=== PATIENT | male | born 1995 | race African-American/Black ===

== ENCOUNTER → 2018-01-17 09:48 | Emergency (ER) | payer OTHER ==
--- NOTE | 2018-01-17 10:15 | ED ---
GI/ HPI - HPI Summary HPI Summary: Patient is a 22 y/o M w/ c/o hematuria. Sx onset this morning. He denies pain, burning, and pruritus at the time. However, he notes he experienced dysuria when providing a urine sample in ED. Back pain, penile discharge, nausea, vomiting, light-headedness/dizziness are denied. Patient notes that he is sexually active with women. On triage, nothing is noted to aggravate/alleviate Sx. Home medications and allergies are reviewed. - History of Current Complaint Chief Complaint: EDUrogenitalProblems Time Seen by Provider: 01/17/18 10:12 Stated Complaint: BLOOD IN URINE Hx Obtained From: Patient Onset/Duration: Started Minutes Ago - dysuria onset while providing urine sample , Started Hours Ago - hematuria onset this morning Current Severity: None - pain is denied Pain Intensity: 0 Additional Locations for Males: Penis - hematuria Associated Signs and Symptoms: Positive: Hematuria, Dysuria, Other: - NEGATIVE: pain, pruritus, and burning. Negative: Back Pain, Dizziness, Nausea, Vomiting, Lightheadedness Additional Signs & Symptoms: Negative: Penile Discharge Aggravating Factor(s): Nothing Alleviating Factor(s): Nothing - Allergy/Home Medications Allergies/Adverse Reactions: Allergies Allergy/AdvReac Type Severity Reaction Status Date / Time No Known Allergies Allergy Verified 01/17/18 10:04 Home Medications: Home Medications NK [No Home Medications Reported] 01/17/18 [History Confirmed 01/17/18] PMH/Surg Hx/FS Hx/Imm Hx Sensory History: Denies: Hx Legally Blind, Hx Deafness Opthamlomology History: Denies: Hx Legally Blind EENT History: Denies: Hx Deafness Infectious Disease History: No Infectious Disease History: Denies: Traveled Outside the [place] in Last 30 Days - Family History Known Family History: Positive: Diabetes - uncle - Social History Alcohol Use: None Substance Use Type: Reports: None Review of Systems Negative: Vomiting, Nausea Positive: dysuria, hematuria, other - NEGATIVE: pruritus . Negative: discharge , pain Positive: Other - NEGATIVE: back pain Neurological: Other - NEGATIVE: light-headedness/dizziness All Other Systems Reviewed And Are Negative: Yes Physical Exam - Summary Physical Exam Summary: Appearance: The patient is well-nourished in no acute distress and in no acute pain. Skin: The skin is warm and dry and skin color reflects adequate perfusion. HEENT: The head is normocephalic and atraumatic. The pupils are equal and reactive. The conjunctivae are clear and without drainage. Nares are patent and without drainage. Mouth reveals moist mucous membranes and the throat is without erythema and exudate. The external ears are intact. The ear canals are patent and without drainage. The tympanic membranes are intact. Neck: The neck is supple with full range of motion and non-tender. There are no carotid bruits. There is no neck vein distension. Respiratory: Chest is non-tender. Lungs are clear to auscultation and breath sounds are symmetrical and equal. Cardiovascular: Heart is regular rate and rhythm. There is no murmur or rub auscultated. There is no peripheral edema and pulses are symmetrical and equal. Abdomen: The abdomen is soft and non-tender. There are normal bowel sounds heard in all four quadrants and there is no organomegaly palpated. Musculoskeletal: There is no back tenderness noted. Extremities are non-tender with full range of motion. There is good capillary refill. There is no peripheral edema or calf tenderness elicited. Neurological: Patient is alert and oriented to person, place and time. The patient has symmetrical motor strength in all four extremities. Cranial nerves are grossly intact. Deep tendon reflexes are symmetrical and equal in all four extremities. Psychiatric: The patient has an appropriate affect and does not exhibit any anxiety or depression. Triage Information Reviewed: Yes Vital Signs On Initial Exam: Initial Vitals Temp Pulse Resp BP Pulse Ox 98.4 F 79 15 142/75 100 01/17/18 10:01 01/17/18 10:01/17/18 10:01 01/17/18 10:01 01/17/18 10:01 Vital Signs Reviewed: Yes Diagnostics - Vital Signs Vital Signs Temp Pulse Resp BP Pulse Ox 01/17/18 10:01 98.4 F 79 15 142/75 100 - Laboratory Lab Statement: Any lab studies that have been ordered have been reviewed, and results considered in the medical decision making process. Re-Evaluation - Re-Evaluation First Eval Re-Evaluation Time: 11:05 Comment: Discussed results of UA with patient. He will be discharged to home and was instructed to follow up with urologist in 1-2 days. Patient understands and is agreeable with this plan. GIGU Course/Dx - Course Course Of Treatment: Mr. Peng presented with the C/O having seen blood in his urine this AM. There is perhaps slight dysuria. He denies abdominal or back pain, fevers or any systemic symptoms. He has no D/C. His U/A shows only microscopic blood. This is likely nothing but I am waiting for Urine GC/ Chlamydia and he knows to F/U with Urology if it continues. - Diagnoses Provider Diagnoses: Hematuria Discharge - Sign-Out/Discharge Documenting (check all that apply): Patient Departure - discharge - Discharge Plan Condition: Stable Disposition: HOME Patient Education Materials: Hematuria (ED) Referrals: [facility] [Provider Group] - 2 Days Additional Instructions: RETURN TO ED FOR ANY NEW OR WORSENING SYMPTOMS. FOLLOW UP WITH UROLOGIST IN 1-2 DAYS. - Billing Disposition and Condition Condition: STABLE Disposition: Home - Attestation Statements Document Initiated by Scribe: Yes Documenting Scribe: Rojas Song Provider For Whom Scribe is Documenting (Include Credential): Shaw Dinh MD Scribe Attestation: IRojas , scribed for Shaw Dinh MD on 01/17/18 at 1239. Scribe Documentation Reviewed: Yes Provider Attestation: The documentation as recorded by the Rojas valdez accurately reflects the service I personally performed and the decisions made by me, Shaw Dinh MD
[2018-01-17 10:50] LABS: Urine Appearance Clear; Urine Blood 1+ (Negative); Urine Color Colorless; Urine Ketones Negative (Negative); Urine Protein Negative (Negative); Urine Red Blood Cell Trace(0-2/hpf) (Absent); Urine Specific Gravity 1.001 (1.010-1.030); Urine Urobilinogen Negative (Negative); Urine White Blood Cell Absent (Absent)
[2018-01-17 12:04] VITALS: BP 129/76
== END | disposition home or self-care (01) ==
LOC: ED 09:48
DX: R31.9 Hematuria, unspecified (principal)
CPT/HCPCS: 81003; 81015; 87491; 87591; 99282